=== PATIENT | male | born 1985 | race Caucasian/White ===

== ENCOUNTER 2020-11-04 09:25 | Outpatient (CLI) | payer BC, SELFPAY ==
--- NOTE | ~2020-11-04 | XR_ITS ---
EXAMINATION: XR chest 2V DATE: 11/04/2020 10:33 INDICATION: Nicotine dependence, shortness of breath TECHNIQUE: PA and lateral views of the chest are obtained. COMPARISON: None available FINDINGS: The lungs are free of acute opacities. There is mild scarring in the lung apices. There is no pleural effusion or pneumothorax. The cardiomediastinal silhouette is normal. The visualized bones and soft tissues are unremarkable. IMPRESSION: 1. No acute cardiopulmonary abnormality. Reviewed, dictated and finalized at location A. RSHED COORDINATOR
--- NOTE | ~2020-11-04 | XR_ITS ---
EXAMINATION: XR abdomen/kub 1V INDICATION: Abdominal pain TECHNIQUE: Supine view of the abdomen is obtained. COMPARISON: None FINDINGS: The bowel gas pattern is normal. No abnormal calcifications are identified. There are no di lated loops of bowel. There is heterotopic ossification projecting over the right femoral neck of unc lear origin. IMPRESSION: 1. No radiographic correlate for the patient's symptoms. 2. Heterotopic ossification projecting over the right femoral neck of unclear origin. Dedicated right hip radiographs are recommended. Reviewed, dictated and finalized at location A. L MANAGER IMPRESSION: 1. No radiographic correlate for the patient's symptoms. 2. Heterotopic ossification projecting over the right femoral neck of unclear o rigin. Dedicated right hip radiographs are recommended.
[2020-11-04 18:37] LABS: Basophils Percent Auto 0.5 % (0.2-1.2); Eosinophils Absolute Auto 0.2 K/mm3 (0-0.3); Eosinophils Percent Auto 3.9 % (0-4.4); Hematocrit 45.4 % (42.0-52.0); Hemoglobin 15.5 g/dL (14.0-18.0); Immature Granulocyte Absolute 0.01 K/mm3 (0.00-0.031); Immature Granulocyte Percent A 0.2 % (0-0.5); Lymphocytes Absolute Auto 2.33 K/mm3 (0.9-3.2); Lymphocytes Percent Auto 39.8 % (18.3-44.2); Mean Corpuscular HGB Conc 34.1 g/dl (32-36); Mean Corpuscular Hemoglobin 27.6 pg (26-34); Mean Corpuscular Volume 80.8 fl (80-100); Monocytes Absolute Auto 0.4 K/mm3 (0.1-0.6); Monocytes Percent Auto 7.2 % (2.6-8.5); Neutrophils Absolute Auto 2.8 K/mm3 (1.3-6.7); Neutrophils Percent Auto 48.4 % (45.5-73.1); Platelet Count Result 263 k/mm3 (150-375); Red Blood Count 5.62 M/mm3 (4.6-6.20); Red Cell Distribution Width 12.1 % (11.5-14.5); White Blood Count 5.9 K/mm3 (4.5-10.0)
[2020-11-04 18:52] LABS: Alanine Aminotransferase 86 U/L (4-50); Albumin Level 4.2 g/dL (3.5-5.1); Alkaline Phosphatase 92 U/L (38-126); Anion Gap 6 mmol/L (8-16); Aspartate Amino Transferase 45 U/L (17-59); Bilirubin,Total 0.9 mg/dL (0.2-1.3); Blood Urea Nitrogen 13 mg/dL (9-20); CRP < 0.5 mg/dL (<1.0); Carbon Dioxide 30 mmol/L (22-30); Chloride 104 mmol/L (98-107); Cholesterol 138 mg/dL (0-200); Estimated Glomerular Filt Rate > 60; Glucose 100 mg/dL (75-110); HDL Direct 52 mg/dL; Potassium 4.1 mmol/L (3.4-5.0); Sodium 140 mmol/L (137-145); Triglycerides 53 mg/dL (<150)
[2020-11-04 19:00] LABS: LDL Cholesterol Direct 69 mg/dL
[2020-11-04 19:06] LABS: Vitamin D 25 Hydroxy 26.3 ng/mL
[2020-11-04 19:19] LABS: Thyroid Stimulating Hormone < 0.015 uIU/mL (0.465-4.680)
[2020-11-04 19:57] LABS: Folic Acid > 20.0 ng/mL (2.76->20)
[2020-11-09 18:23] LABS: Testosterone Free 89.5 pg/mL (35.0-155.0); Testosterone Total 1053 ng/dL (250-1100)
== END 2020-11-04 09:26 | disposition home or self-care (01) ==
LOC: ANHBWCIMG 09:27
PROVIDERS: PCP Family Medicine; Visit Provider Family Medicine
DX: Z00.00 Encounter for general adult medical examination without abnormal findings (principal); R10.9 Unspecified abdominal pain; F17.200 Nicotine dependence, unspecified, uncomplicated; G89.29 Other chronic pain; M54.9 Dorsalgia, unspecified; Z13.9 Encounter for screening, unspecified; Z79.899 Other long term (current) drug therapy; Z82.62 Family history of osteoporosis; N99.89 Other postprocedural complications and disorders of genitourinary system; M89.9 Disorder of bone, unspecified
CPT/HCPCS: 36415; 71046; 74018; 80053; 80061; 82306; 82607; 82746; 84402; 84403; 84443; 85025; 86140

== ENCOUNTER 2020-11-14 10:36 | Outpatient (CLI) | payer BC, SELFPAY ==
--- NOTE | ~2020-11-14 | US_ITS ---
EXAMINATION: US thyroid DATE: 11/14/2020 11:26 INDICATION: Thyrotoxicosis. TECHNIQUE: Multiple ultrasound images of the thyroid were obtained. COMPARISON: None. FINDINGS: The right thyroid lobe measures 5.8 x 4.1 x 2.7 cm. The left thyroid lobe measures 5.8 x 3.3 x 3.2 c m. There are several bilateral solid or predominantly solid hypoechoic nodules with smooth margins a nd with multiple hyperechoic foci which could represent microcalcifications and a few larger coarse s hadowing calcifications (TI-RADS 5, highly suspicious , FNA if >=1.0 cm, annual followup is >0.5 cm). The largest is a 4.3 cm mass in the left thyroid lobe and the next largest a 3.6 cm mass in the righ t thyroid lobe. The smaller nodules include a couple 1-1.5 cm superior left thyroid and one at the in ferior right thyroid. IMPRESSION: 1. Multinodular goiter with multiple bilateral TI RADS 5 nodules. Would recommend ultrasound-guided b iopsy of the largest 4.3 cm left and 3.6 cm right thyroid nodules. Reviewed, dictated and finalized at location B. NITRATE PROCESSOR IMPRESSION: 1. Multinodular goiter with multiple bilateral TI RADS 5 nodules. Would recomme nd ultrasound-guided biopsy of the largest 4.3 cm left and 3.6 cm right thyroid nodules.
== END 2020-11-14 10:37 | disposition home or self-care (01) ==
PROVIDERS: PCP Family Medicine; Visit Provider Family Medicine
DX: E05.90 Thyrotoxicosis, unspecified without thyrotoxic crisis or storm (principal); E04.2 Nontoxic multinodular goiter
CPT/HCPCS: 76536

== ENCOUNTER 2020-11-28 08:33 | Outpatient (CLI) | payer BC, SELFPAY ==
--- NOTE | ~2020-11-28 | US_ITS ---
EXAMINATION: US FNA w image guidance, US FNA additional DATE: 11/28/2020 09:33 INDICATION: Multinodular goiter. TECHNIQUE: The procedure and its benefits and risks were discussed with the patient. Risks specifically discusse d included bleeding. The patient verbalized understanding of the risks and agreed to proceed. The nec k was prepped and draped in the usual sterile manner. 1% lidocaine was used for local anesthesia. F jarocho passes were made with a 25G needle into the lesion in left thyroid lobe under ultrasound guidance . Five passes were made with a 25G needle into the lesion in right thyroid lobe under ultrasound guidan ce. There were no immediate complications. FINDINGS: Grayscale ultrasound images demonstrate needles advanced into a 4.3 cm nodule in left thyroid lobe fo r biopsy. Grayscale ultrasound images demonstrate needles advanced into a 3.6 cm right thyroid nodule . IMPRESSION: 1. Ultrasound-guided fine needle aspiration of a 4.3 cm left thyroid nodule. 2. Ultrasound-guided fine-needle aspiration of a 3.6 cm right thyroid nodule. Reviewed, dictated and finalized at location A. IMPRESSION: 1. Ultrasound-guided fine needle aspiration of a 4.3 cm left thyroid nodule. 2. Ultrasound-guided fine-needle aspiration of a 3.6 cm right thyroid nodule.
== END 2020-11-28 08:34 | disposition home or self-care (01) ==
LOC: ANHIMG 08:36
PROVIDERS: PCP Family Medicine; Visit Provider Family Medicine
DX: E04.2 Nontoxic multinodular goiter (principal); E05.90 Thyrotoxicosis, unspecified without thyrotoxic crisis or storm
CPT/HCPCS: 10005; 10006; 88173; 88305

== ENCOUNTER 2020-12-29 08:40 | Outpatient (CLI) | payer BC, SELFPAY ==
[2020-12-29 20:09] LABS: Erythrocyte Sedimentation Rate 16 mm/hr (0-20)
[2020-12-29 20:45] LABS: Free T4 Free Thyroxine 2.41 ng/mL (0.78-2.19)
[2020-12-29 20:59] LABS: Thyroid Stimulating Hormone < 0.015 uIU/mL (0.465-4.680); Total Triiodothyronine (T3) 5.35 NG/ML (0.97-1.69)
[2021-01-02 06:14] LABS: Thyroid Peroxidase Antibodies <1 IU/mL (<9)
[2021-01-03 06:42] LABS: Thyrotropin Receptor Antibody <1.00 IU/L (<=2.00)
== END 2020-12-29 08:41 | disposition home or self-care (01) ==
PROVIDERS: PCP Family Medicine; Visit Provider Internal Medicine Endocrinology, Diabetes & Metabolism
DX: E04.2 Nontoxic multinodular goiter (principal); E05.90 Thyrotoxicosis, unspecified without thyrotoxic crisis or storm
CPT/HCPCS: 36415; 83519; 84439; 84443; 84480; 85652; 86376

== ENCOUNTER 2021-04-24 11:21 | Outpatient (CLI) | payer BC, SELFPAY ==
[2021-04-24 19:51] LABS: Free T4 Free Thyroxine 1.02 ng/mL (0.78-2.19)
[2021-04-24 20:05] LABS: Thyroid Stimulating Hormone < 0.015 uIU/mL (0.465-4.680)
== END 2021-04-24 11:22 | disposition home or self-care (01) ==
LOC: ANHBWCLAB 11:24
PROVIDERS: PCP Family Medicine; Visit Provider Internal Medicine Endocrinology, Diabetes & Metabolism
DX: E05.90 Thyrotoxicosis, unspecified without thyrotoxic crisis or storm (principal)
CPT/HCPCS: 36415; 84439; 84443

== ENCOUNTER 2021-07-06 11:11 | Outpatient (CLI) | payer BC, SELFPAY ==
[2021-07-06 22:07] LABS: Free T4 Free Thyroxine 0.67 ng/mL (0.78-2.19)
[2021-07-06 22:32] LABS: Total Triiodothyronine (T3) 1.52 NG/ML (0.97-1.69)
== END 2021-07-06 11:12 | disposition home or self-care (01) ==
LOC: ANHBWCLAB 11:13
PROVIDERS: PCP Family Medicine; Visit Provider Internal Medicine Endocrinology, Diabetes & Metabolism
DX: E05.90 Thyrotoxicosis, unspecified without thyrotoxic crisis or storm (principal)
CPT/HCPCS: 36415; 84439; 84443; 84480

== ENCOUNTER 2021-09-07 11:37 | Outpatient (CLI) | payer BC, SELFPAY ==
--- NOTE | ~2021-09-07 | XR_ITS ---
EXAMINATION: XR chest 2V 09/07/2021 11:46 INDICATION: Chest discomfort PROCEDURE: 2 view chest COMPARISON: 11/04/2020 FINDINGS: The lungs are clear. The cardiomediastinal silhouette is within normal limits. There are no pleural effusions. There is no pneumothorax suspected. IMPRESSION: 1: NO ACUTE CARDIOPULMONARY DISEASE. Reviewed, dictated and finalized at location A. OR PRODUCT DESIGNER
== END 2021-09-07 11:38 | disposition home or self-care (01) ==
LOC: ANHBWCIMG 11:40
PROVIDERS: PCP Family Medicine; Visit Provider Family Medicine
DX: E05.90 Thyrotoxicosis, unspecified without thyrotoxic crisis or storm (principal); E04.2 Nontoxic multinodular goiter; Z00.00 Encounter for general adult medical examination without abnormal findings
CPT/HCPCS: 71046

== ENCOUNTER 2021-11-06 08:34 | Outpatient (CLI) | payer BC, SELFPAY ==
[2021-11-06 20:06] LABS: Hematocrit 47.9 % (42.0-52.0); Hemoglobin 16.5 g/dL (14.0-18.0); Mean Corpuscular HGB Conc 34.4 g/dl (32-36); Mean Corpuscular Hemoglobin 30.7 pg (26-34); Mean Platelet Volume 10.2 fl (7.4-10.4); Platelet Count Result 272 k/mm3 (150-375); Red Blood Count 5.38 M/mm3 (4.6-6.20); Red Cell Distribution Width 12.5 % (11.5-14.5); White Blood Count 7.8 K/mm3 (4.5-10.0)
[2021-11-06 20:12] LABS: Alanine Aminotransferase 33 U/L (4-50); Alkaline Phosphatase 58 U/L (38-126); Anion Gap 8 mmol/L (8-16); Aspartate Amino Transferase 31 U/L (17-59); Blood Urea Nitrogen 12 mg/dL (9-20); Carbon Dioxide 29 mmol/L (22-30); Chloride 100 mmol/L (98-107); Estimated Glomerular Filt Rate > 60; Glucose 106 mg/dL (65-110); Potassium 4.4 mmol/L (3.4-5.0); Sodium 137 mmol/L (137-145)
[2021-11-06 20:28] LABS: Free T4 Free Thyroxine 0.75 ng/mL (0.78-2.19)
[2021-11-06 20:30] LABS: T4 Thyroxine 6.02 ug/dL (5.53-11.0)
[2021-11-06 20:44] LABS: Total Triiodothyronine (T3) 1.71 NG/ML (0.97-1.69)
[2021-11-08 05:07] LABS: Triiodothyronine T3 Free 2.7 pg/mL (2.3-4.2)
== END 2021-11-06 08:35 | disposition home or self-care (01) ==
PROVIDERS: PCP Family Medicine; Visit Provider Internal Medicine Endocrinology, Diabetes & Metabolism
DX: Z00.00 Encounter for general adult medical examination without abnormal findings (principal); E04.9 Nontoxic goiter, unspecified; E05.90 Thyrotoxicosis, unspecified without thyrotoxic crisis or storm; R25.2 Cramp and spasm
CPT/HCPCS: 36415; 80053; 82248; 84436; 84439; 84443; 84480; 84481; 85027

== ENCOUNTER 2021-12-04 08:37 | Outpatient (CLI) | payer BC, SELFPAY ==
[2021-12-04 19:13] LABS: Anion Gap 7 mmol/L (8-16); Blood Urea Nitrogen 16 mg/dL (9-20); Calcium 9.7 mg/dL (8.4-10.2); Carbon Dioxide 31 mmol/L (22-30); Chloride 100 mmol/L (98-107); Estimated Glomerular Filt Rate > 60; Glucose 100 mg/dL (65-110); Potassium 4.3 mmol/L (3.4-5.0); Sodium 138 mmol/L (137-145)
[2021-12-04 19:25] LABS: Free T4 Free Thyroxine 0.63 ng/mL (0.78-2.19); Vitamin D 25 Hydroxy 34.9 ng/mL
[2021-12-07 07:28] LABS: Triiodothyronine T3 Free 3.2 pg/mL (2.3-4.2)
== END 2021-12-04 08:38 | disposition home or self-care (01) ==
LOC: ANHBWCLAB 09:58
PROVIDERS: PCP Family Medicine; Visit Provider Internal Medicine Endocrinology, Diabetes & Metabolism
DX: E04.9 Nontoxic goiter, unspecified (principal); E89.3 Postprocedural hypopituitarism; R79.89 Other specified abnormal findings of blood chemistry
CPT/HCPCS: 36415; 80048; 82306; 84439; 84443; 84481

== ENCOUNTER 2022-05-07 08:36 | Outpatient (CLI) | payer BC, SELFPAY ==
[2022-05-07 20:27] LABS: Free T4 Free Thyroxine 0.83 ng/mL (0.78-2.19); Vitamin D 25 Hydroxy 30.8 ng/mL
== END 2022-05-07 08:37 | disposition home or self-care (01) ==
LOC: ANHBWCLAB 08:38
PROVIDERS: PCP Family Medicine; Visit Provider Internal Medicine Endocrinology, Diabetes & Metabolism
DX: R79.89 Other specified abnormal findings of blood chemistry (principal); E89.0 Postprocedural hypothyroidism
CPT/HCPCS: 36415; 82306; 84439; 84443

== ENCOUNTER 2023-05-16 10:09 | Outpatient (CLI) | payer BC, SELFPAY ==
[2023-05-16 19:56] LABS: Alanine Aminotransferase 43 U/L (6-50); Albumin Level 4.6 g/dL (3.5-5.1); Alkaline Phosphatase 38 U/L (38-126); Anion Gap 5 mmol/L (8-16); Aspartate Amino Transferase 76 U/L (17-59); Bilirubin,Total 0.8 mg/dL (0.2-1.3); Blood Urea Nitrogen 14 mg/dL (9-20); Carbon Dioxide 31 mmol/L (22-30); Chloride 101 mmol/L (98-107); Cholesterol 196 mg/dL (0-200); Estimated Glomerular Filt Rate > 60; Glucose 88 mg/dL (65-110); HDL Direct 61 mg/dL; Potassium 4.5 mmol/L (3.4-5.0); Sodium 137 mmol/L (137-145); Triglycerides 50 mg/dL (<150)
[2023-05-16 20:01] LABS: Hematocrit 45.5 % (42.0-52.0); Hemoglobin 15.1 g/dL (14.0-18.0); Mean Corpuscular HGB Conc 33.2 g/dl (32-36); Mean Corpuscular Volume 90.3 fl (80-100); Mean Platelet Volume 9.9 fl (7.4-10.4); Platelet Count Result 308 k/mm3 (150-375); Red Blood Count 5.04 M/mm3 (4.6-6.20); Red Cell Distribution Width 12.6 % (11.5-14.5); White Blood Count 6.8 K/mm3 (4.5-10.0)
[2023-05-16 20:06] LABS: LDL Cholesterol Direct 101 mg/dL
[2023-05-16 20:39] LABS: Vitamin D 25 Hydroxy 16.2 ng/mL
== END 2023-05-16 10:10 | disposition home or self-care (01) ==
LOC: ANHBWCLAB 10:11
PROVIDERS: PCP Nurse Practitioner Adult Health; Visit Provider Nurse Practitioner Adult Health
DX: Z13.9 Encounter for screening, unspecified (principal)
CPT/HCPCS: 36415; 80053; 80061; 82306; 84443; 85027

== ENCOUNTER 2024-06-05 08:50 | Outpatient (CLI) | payer OTHER, SELFPAY ==
--- NOTE | ~2024-06-05 | US_ITS ---
EXAMINATION: US_ABDRLQ_US DATE: 06/05/2024 09:07 INDICATION: Right lower quadrant abdominal pain. TECHNIQUE: Multiple grayscale and Doppler ultrasound images of the abdomen were obtained. COMPARISON: None FINDINGS: There is no abnormal mass or hernia in the right lower quadrant. The appendix is not identi fied. IMPRESSION: 1. No abnormality in the right lower quadrant. Appendix not identified. Reviewed, dictated and finalized at location A.
== END 2024-06-05 08:51 | disposition home or self-care (01) ==
LOC: GOSHIMG 08:52
PROVIDERS: PCP Nurse Practitioner Adult Health; Visit Provider Nurse Practitioner Adult Health
DX: R10.31 Right lower quadrant pain (principal)
CPT/HCPCS: 76705

== ENCOUNTER 2024-06-15 08:36 | Outpatient (CLI) | payer OTHER, SELFPAY ==
[2024-06-15 18:52] LABS: Hematocrit 49.9 % (42.0-52.0); Hemoglobin 16.2 g/dL (14.0-18.0); Mean Corpuscular HGB Conc 32.5 g/dl (32-36); Mean Corpuscular Hemoglobin 29.2 pg (26-34); Mean Corpuscular Volume 90.1 fl (80-100); Mean Platelet Volume 9.9 fl (7.4-10.4); Platelet Count Result 277 k/mm3 (150-375); Red Blood Count 5.54 M/mm3 (4.6-6.20); Red Cell Distribution Width 12.8 % (11.5-14.5); White Blood Count 6.4 K/mm3 (4.5-10.0)
[2024-06-15 19:02] LABS: Alanine Aminotransferase 60 U/L (6-50); Albumin Level 4.5 g/dL (3.5-5.1); Alkaline Phosphatase 38 U/L (38-126); Anion Gap 6 mmol/L (4-12); Aspartate Amino Transferase 70 U/L (17-59); Bilirubin,Total 0.5 mg/dL (0.2-1.3); Blood Urea Nitrogen 13 mg/dL (9-20); Calcium 9.2 mg/dL (8.4-10.2); Carbon Dioxide 31 mmol/L (22-30); Chloride 101 mmol/L (98-107); Cholesterol 187 mg/dL (0-200); Estimated Glomerular Filt Rate > 60; Glucose 107 mg/dL (65-110); HDL Direct 66 mg/dL; Potassium 4.7 mmol/L (3.4-5.0); Sodium 138 mmol/L (137-145); Triglycerides 60 mg/dL (<150)
[2024-06-15 19:15] LABS: LDL Cholesterol Direct 92 mg/dL
== END 2024-06-15 08:37 | disposition home or self-care (01) ==
LOC: ANHBWCLAB 08:37
PROVIDERS: PCP Nurse Practitioner Adult Health; Visit Provider Nurse Practitioner Adult Health
DX: Z13.9 Encounter for screening, unspecified (principal)
CPT/HCPCS: 36415; 80053; 80061; 84443; 85027

== ENCOUNTER 2024-07-30 08:44 | Outpatient (CLI) | payer OTHER, SELFPAY ==
[2024-07-30 21:23] LABS: Free T4 Free Thyroxine 0.55 ng/mL (0.78-2.19)
[2024-08-03 13:49] LABS: Thyroid Peroxidase Antibodies <1 IU/mL (<9)
== END 2024-07-30 08:45 | disposition home or self-care (01) ==
LOC: ANHBWCLAB 08:45
PROVIDERS: PCP Nurse Practitioner Adult Health; Visit Provider Nurse Practitioner Adult Health
DX: R79.89 Other specified abnormal findings of blood chemistry (principal)
CPT/HCPCS: 36415; 84439; 86376

== ENCOUNTER 2024-08-04 07:43 | Outpatient (CLI) | payer OTHER, SELFPAY ==
[2024-08-04 19:46] LABS: Add Urine Microscopic? NO; Appearance Urine Clear (Clear); Bilirubin Urine Negative (Negative); Blood Urine Negative (Negative); Color Urine Yellow (Yellow); Glucose Urine UA Negative (Negative); Ketones Urine Negative (Negative); Leukocyte Esterase Ur Negative LEU/UL (Negative); Nitrate Urine Negative (Negative); Protein Urine Negative (Negative); Specific Grav Ur 1.022 (1.001-1.035); Urobilinogen Urine 0.2 mg/dL (<2.0)
== END 2024-08-04 07:44 | disposition home or self-care (01) ==
PROVIDERS: PCP Nurse Practitioner Adult Health; Visit Provider Nurse Practitioner Adult Health
DX: R79.89 Other specified abnormal findings of blood chemistry (principal); R10.30 Lower abdominal pain, unspecified
CPT/HCPCS: 81003; 87086

== ENCOUNTER 2025-01-29 07:43 | Outpatient (CLI) | payer OTHER, SELFPAY ==
--- NOTE | ~2025-01-29 | US_ITS ---
EXAMINATION: US scrotum doppler DATE: 02/01/2025 08:21 INDICATION: Scrotal pain TECHNIQUE: Testicular sonogram utilizing grayscale and Doppler COMPARISON: None. FINDINGS: The right testis measures 3.8 x3.6 x 2.3 cm. The left testis measures 3.9 x 2.7 x 1.8 cm. Symmetric n ormal grayscale appearance to both testes with a few tiny echogenic foci in both testes consistent wi th minimal microlithiasis. There is normal vascular flow to both testes. The right epididymis is norm al with normal vascular flow. The left epididymis is normal with normal vascular flow. There is no hy drocele or right-sided varicocele. Mild left varicocele. IMPRESSION: 1. Left varicocele and minimal bilateral testicular microlithiasis. No acute intrascrotal abnormalit y. Reviewed, dictated and finalized at location A. IMPRESSION: 1. Left varicocele and minimal bilateral testicular microlithiasis. No acute i ntrascrotal abnormality.
--- NOTE | ~2025-01-29 | US_ITS ---
EXAMINATION: US soft tissue groin RT DATE: 02/01/2025 08:21 INDICATION: Lower abdominal pain TECHNIQUE: Multiple grayscale and Doppler ultrasound images of the region of concern at the right low er quadrant/groin were obtained. COMPARISON: None FINDINGS: There are a few normal-sized and appearing right inguinal lymph nodes with echogenic central fatty hi la. No other abnormal masses or fluid collections or evident inguinal hernia. IMPRESSION: 1. Normal study. Normal-sized right inguinal lymph nodes. Reviewed, dictated and finalized at location A.
== END 2025-01-29 07:52 | disposition home or self-care (01) ==
PROVIDERS: PCP Nurse Practitioner Adult Health; Visit Provider Nurse Practitioner Adult Health
DX: N50.82 Scrotal pain (principal); R10.31 Right lower quadrant pain; I86.1 Scrotal varices
CPT/HCPCS: 76870; 76882; 93976

== ENCOUNTER 2025-05-20 11:05 | Outpatient (CLI) | payer OTHER, SELFPAY ==
[2025-05-20 11:41] LABS: Hematocrit 44.1 % (42.0-52.0); Hemoglobin 15.1 g/dL (14.0-18.0); Immature Granulocyte Percent A 0.3 % (0-0.5); Lymphocytes Absolute Auto 2.23 K/mm3 (0.9-3.2); Mean Corpuscular HGB Conc 34.2 g/dl (32-36); Mean Corpuscular Hemoglobin 29.6 pg (26-34); Mean Corpuscular Volume 86.5 fl (80-100); Nucleated Red Blood Cells Absolute Auto 0.000 K/mm3 (0.0-0.012); Nucleated Red Blood Cells Perc 0.0 % (0.0-0.2); Platelet Count Result 261 k/mm3 (150-375); Red Blood Count 5.10 M/mm3 (4.6-6.20); White Blood Count 7.0 K/mm3 (4.5-10.0)
--- OUTSIDE RECORDS SUMMARY | 2025-05-20 11:48 | XMS_ITS | Clinical Summary ---
Author Organization [facility] Medical Office Building [address] Address [facility] [place] [address] Care Team Providers Care Bowling Floor Manager Name Role Phone Tavares Hinojosa DO Primary Care Provider [phone] Donna Sigala MD Unavailable [phone] Jackie Schmitt MD Unavailable [phone] Allergies Active Allergy Reactions Criticality Noted Date Comments Amoxicillin Rash Medium 06/15/2019 Cefaclor Rash Medium 06/15/2019 Methimazole Hives Medium 03/02/2021 Medications fish oil-dha-epa 1,200-144-216 mg capsule Take by mouth Active multivitamin tabletIndication s:Vitamin Deficiency Prevention Take 1 tablet by mouth Active Active Problems Problem Noted Date Diagnosed Date Hyperthyroidism 03/02/2021 Surgical History Surgery Date Site/Laterality Comments TONSILLECTOMY as a child Medical History Medical History Date Comments Thyroid disease Anxiety Depression Family History Medical History Relation Name Comments Cancer Maternal Grandfather Relation Name Status Comments Maternal Grandfather Social History Tobacco Use Types Packs/Day Years Used Date Smoking Tobacco: Every Day Cigarettes 0.5 13.7 Started: 2011 Smokeless Tobacco: Never Comments:pt stated he stoppe d for a while, then started back up recently smoking more than before AUDIT-C Answer Date Recorded Q1: How often do you have a drink containing alc ohol? 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 Gender Identity Not on file Sexual Orientation Not on file Obstetrics History Last Filed Vital Signs Vital Sign Reading Time Taken Comments Blood Pressure 99/56 03/02/2021 1:59 PM CDT Pulse 66 03/02/2021 1:59 PM CDT Temperature 36.5 C (97.7 F) 06/15/2019 3:45 AM CDT Respiratory Rate 18 06/15/2019 3:45 AM CDT Oxygen Saturation 100% 03/02/2021 1:59 PM CDT Inhaled Oxygen Concentration - - Weight 67.9 kg (149 lb 12.8 oz) 03/02/2021 1:59 PM CDT Height 185.4 cm (6' 1) 06/15/2019 3:45 AM CDT Body Mass Index 19.76 06/15/2019 3:45 AM CDT Plan of Treatment Not on file Insurance [employer] [place] [address] [place] [id number] [place] [employer]F PPO [place] Care Teams Bowling Floor Manager Relationship Specialty Start Date End Date Tavares Hinojosa DO PCP - General Family Medicine 03/02/21 Donna Sigala MD [address] [place] [address] Endocrinology Diabetes & Metabolism 03/02/21 Jackie Schmitt MD [address] [place], [place] [id number] Radiation Oncologist Radiation Oncology 03/02/21
== END 2025-05-20 11:06 | disposition home or self-care (01) ==
LOC: ANHSURGERY 11:07
PROVIDERS: PCP Nurse Practitioner Adult Health; Visit Provider Surgery
DX: K40.90 Unilateral inguinal hernia, without obstruction or gangrene, not specified as recurrent (principal)
CPT/HCPCS: 36415; 85025; 86850; 86900; 86901

== ENCOUNTER 2025-05-26 01:57 | Day surgery (SDC) | payer OTHER, SELFPAY ==
[2025-05-19 10:49] VITALS: BMI 24.0
--- NOTE | 2025-05-19 11:01 | PC.NURSE ---
Report to the Outpatient Waiting Room, entrance under the green pavilion located off [facility], at time _0600_ on date _23-11-1078_. Planned Procedure Time: _0730_.? Time changes happen often and if your time is changed the preop area will call you the afternoon before. - You and your visitor will be asked to self-screen and do not enter if you have any COVID symptoms. Please call surgeon if you need to reschedule. - A mask is optional within the hospital at this time. Patients may have clear liquids (water, carbonated beverages, clear teas, apple juice) until 3 hours prior to surgery with a maximum of 20 ounces. - No food from midnight until time of surgery and no smoking, or chewing tobacco (or any form of nicotine). No chewing gum, candy or mints. Take only the following medications with a SIP of water on the morning of surgery: __If resume Levothyroxine take it this morning.____ DO NOT STOP ANY OF YOUR OTHER PRESCRIPTION MEDICATIONS PRIOR TO SURGERY EXCEPT THE FOLLOWING Hold all vitamins and supplements for 3 days per anesthesiologist. Medications to discontinue per physician Date to take last ioby___20-31-0810___ Please no make-up, nail malian, hairspray, perfume, deodorant, or body powder the day of surgery.? No jewelry (including any body piercings) or valuables the day of surgery, leave them at home.? Please take a shower or bath the night before, or the morning of, surgery with an antibacterial soap.? Wear comfortable, loose fitting clothing.? - Jewelry must be removed prior to entering the operating room.? Rings and piercings that are not removed may be cut off. - The hospital will not accept responsibility for valuables.? - Please leave all valuables, including medications, at home the day of surgery. If you are going home after surgery, a licensed lokie driver must drive you home.? - NO public transportation without another adult if you receive anesthesia. - We recommend that an adult stay with you for 24 hours following discharge. - We also recommend that you do not drive, make important decision, drink alcoholic beverages, or take any drugs that were not prescribed by your health care provider for at least 24 hours after your discharge time. Follow any additional instructions given to you from your surgeon. Telephone instructions given to __Alex___and asked if any additional questions and then verbalized understanding. Patient advised to call surgeon office or pre surgery nurse liaison [phone] if any additional questions.
--- NOTE | 2025-05-25 08:38 | PM.SD2 ---
Same Day Admit/Disch: HPI History of Present Illness Chief complaint: Rt Ing Hernia Narrative: Felipe Salgado is a 39 year old male who noticed discomfort in his right groin last May. Initially thought discomfort was due to a muscle strain as it started soon after doing home improvement projects. Discomfort persisted, so he was evaluated by his PCP who ordered testing, but patient deferred scheduling immediately. He has since developed radiating pain into his scrotum and associated bulging in his right groin and scrotum. He did get right groin and scrotal ultrasounds done in January, which showed left varicocele and minimal bilateral testicular microlithiasis. No acute intrascrotal abnormality. Otherwise normal imaging. Symptoms are most prominent at the end of his day, especially when he's been more active. Discomfort improves and bulging reduces with rest. He does report increased urinary frequency, but no change in bowel habits, nausea, vomiting, or abdominal distension. [facility] Past Medical History Medical History Multiple thyroid nodules Vocal cord nodules Depression Allergies Anxiety Surgical History Surgical History H/O vasectomy Family History Family History Other Anxiety Asthma Cerebrovascular accident Depression Heart disease Thyroid disease Social History Social History Years smoked: 5 Smoking status: Former smoker Tobacco type: cigarettes Smoking end date: 02/15/22 Alcohol intake: current Drinks per week: 14 Substance use: never Substance use type: marijuana Other substance usage details: On rare occasions. Do You Feel Safe in your Home?: Yes Lack of Transportation: No Lack of Food: Never True Current Housing: I Have Housing Concerned About Future Housing: No Difficulty Paying Gas/Electric Bills: No Difficulty Paying for Meds: No Currently Unemployed: No Education: Master's Degree or Higher Difficulty w/ Childcare or Family Care: No Living arrangements: with family Occupation/Education: occupation Spiritual care concerns: No Same Day Admit/Disch: Med Pre-admit Medications Home Medications ?Medication ?Instructions ?Recorded ?Confirmed ?Type levothyroxine 25 mcg tablet See Rx Instructions .Route 10/29/24 05/26/25 Rx .COMPLEX #90 tabs multivitamin (Daily Multi-Vitamin 1 tablet PO DAILY 05/19/25 05/26/25 History tablet) omega 3-vfg-kbd-fish oil 1,200 mg 1 cap PO DAILY 05/19/25 05/26/25 History (144 mg-216 mg) capsule (Fish Oil) ketorolac 10 mg tablet 10 mg PO Q6H 4 days #16 tabs 05/26/25 Rx oxycodone-acetaminophen 5 mg-325 0.5 - 1 tablet PO Q4H PRN pain #10 05/26/25 Rx mg tablet (Percocet) tabs Review of Systems Review of Systems All systems reviewed & are unremarkable except as noted in HPI and below (HPI) Exam Const: General: comfortable, no acute distress, alert and awake HENMT: Head: normocephalic and atraumatic Mouth: Yes Normal oral and palatal mucosa present Eyes: Conjunctivae: conjunctivae normal Pupils: Equal, round and reactive pupils present EOM: EOMs intact bilaterally Neck: Neck: normal visual inspection, no lymphadenopathy and nontender Resp: Effort & Inspection: normal respiratory effort Auscultation: clear to auscultation bilaterally Cardio: Rate: regular rate Rhythm: regular rhythm Heart sounds: no gallops, no murmurs and no rubs GI: Inspection: non-distended GI Palp: Yes Soft to palpation, No Tenderness to palpation present (GI), No Hepatomegaly present and No Splenomegaly present : Male General Exam: Yes hernia ( right inguinal hernia that extends down to the scrotum) Penis: Yes normal penis Scrotum: scrotum normal Testes: Testes normal Skin: Lesions: no lesions Rashes: no rashes Neuro: General: no focal motor deficits and CN's II-XI intact bilaterally Cranial nerves: Yes Equal, round and reactive pupils present, Yes Bilaterally intact EOM present, Yes facial symmetry and Yes Midline tongue present Speech: normal speech Motor exam (neuro): 5/5 motor strength present throughout and Motor abnormalities not present Extrem: General: no clubbing, cyanosis or edema and edema Psych: Affect: normal affect Thought process: Normal thought process present Insight: Good insight present (Psych) DS: Summary Time Spent with Patient Time attestation: Total time spent providing and/or coordinating discharge services: DS: Admitting Diagnosis Discharge Date 05/26/2025 Admitting Diagnosis right inguinal hernia - reducible but symptomatic - after discussion, plan to proceed with robotic laparoscopic right inguinal hernia repair with mesh. Procedure, risks, benefits have been discussed. Use of mesh, length of surgery, length of recovery and time off work have been discussed. All questions were answered, he understands and wishes to go ahead. hypothyroidism--on supplement DS: Discharge Diagnosis Discharge Diagnosis (1) Inguinal hernia of right side without obstruction or gangrene: Code(s): K40.90 - Unilateral inguinal hernia, without obstruction or gangrene, not specified as recurrent Status: Chronic Assessment and Plan: Robotic laparoscopic repair with 3DMax mesh performed 05/26/[address] Ribeiro as an outpatient Discharge Plan Discharge Patient Disposition: Home Discharge Instructions: 1. May shower the day after surgery over incisions. 2. Call office for: -Wound increasingly painful or bleeding -Vomiting -Fever of greater than 101 degrees 3. Wear scrotal support at all times except when showering or sleeping for 1 week 4. If no bowel movement for three days, take 1 oz. (30 ml) Milk of Magnesia, if no results, take Fleets enema. 5. No heavy lifting > 15-20 pounds for 2 weeks. 6. No driving for 3 days or while taking narcotic pain medications. 7. Up walking 10-30 minutes three times per day. 8. Resume previous home medications. 9. Follow-up 10-14 days in office for wound check or as previously scheduled. 10. Oral pain medications prescription to be sent home with patient. 11. NUTRITION: Start out by drinking fluids and increase your diet as tolerated. If you experience nausea, try dry toast, crackers, and 7-UP. If nausea or vomiting persists, contact your surgeon?s office. Patient Language: Divehi Stand Alone Forms: General Discharge Instructions Follow-up/Referrals: Wale Ribeiro MD [Physician, General Surgery] - 2 Weeks Discharge Medications: New ketorolac 10 mg tablet 10 mg PO Q6H 4 Days Qty: 16 0RF oxycodone-acetaminophen [Percocet] 5-325 mg tablet 0.5 - 1 tablet PO Q4H PRN (Reason: pain) Qty: 10 0RF Continued multivitamin [Daily Multi-Vitamin] Tablet 1 tablet PO DAILY omega 1-xtu-kpi-fish oil [Fish Oil] 1,200 (144-216) mg capsule 1 cap PO DAILY levothyroxine 25 mcg tablet See Rx Instructions .ROUTE .COMPLEX Qty: 90 0RF Dose Instruction: TAKE 1 TABLET BY MOUTH DAILY Patient Comments: currently not taking because 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 Rx Instructions: TAKE 1 TABLET BY MOUTH DAILY
[2025-05-26] VITALS (9 sets, daily range): BP systolic 110–130; BP diastolic 63–87; PULSE 56–81; RESP 14–20; TEMP 36.4–36.9; O2SAT 95–100; BMI 24.7
[2025-05-26] MEDS: LACTATED RINGERS 1,000 ML 30 ML IV CONT ×2 (06:45→09:45)
--- NOTE | 2025-05-26 06:48 | WPDANESEPPF ---
Anes - Initial Pre Proc Eval Procedure: Operation Date: 05/26/25 07:30 Proposed Procedures p Robotic Repair Right Inguinal Hernia with Mesh - Wale Ribeiro MD Date/Time: 05/26/25 06:48 Surgeon: Wale Ribeiro MD Pre Op Diagnosis: Rt Ing Hernia Patient Data Age: 39 Gender: M Height: 1.87 m Weight: 84 kg Allergies Allergy/AdvReac Type Severity Reaction Status Date / Time cefaclor (From Ceclor) Allergy Hives Verified 05/26/25 06:47 methimazole Allergy Hives Verified 05/26/25 06:47 Home Medications ?Medication ?Instructions ?Recorded ?Confirmed ?Type levothyroxine 25 mcg tablet See Rx Instructions .Route 10/29/24 05/26/25 Rx .COMPLEX #90 tabs multivitamin (Daily Multi-Vitamin 1 tablet PO DAILY 05/19/25 05/26/25 History tablet) omega 4-euz-fij-fish oil 1,200 mg 1 cap PO DAILY 05/19/25 05/26/25 History (144 mg-216 mg) capsule (Fish Oil) Patient hx anesthesia problems: none Family hx anesthesia problems: none Results Review: All pre-operative results and documents have been reviewed as part of the pre-operative evaluation. [facility] Past Medical History Medical History Multiple thyroid nodules Vocal cord nodules Depression Allergies Anxiety Surgical History Surgical History H/O vasectomy Family History Family History Other Anxiety Asthma Cerebrovascular accident Depression Heart disease Thyroid disease Social History Social History Years smoked: 5 Smoking status: Former smoker Tobacco type: cigarettes Smoking end date: 02/15/22 Alcohol intake: current Drinks per week: 14 Substance use: never Substance use type: marijuana Other substance usage details: On rare occasions. Do You Feel Safe in your Home?: Yes Lack of Transportation: No Lack of Food: Never True Current Housing: I Have Housing Concerned About Future Housing: No Difficulty Paying Gas/Electric Bills: No Difficulty Paying for Meds: No Currently Unemployed: No Education: Master's Degree or Higher Difficulty w/ Childcare or Family Care: No Living arrangements: with family Occupation/Education: occupation Spiritual care concerns: No Anes - Eval Final PreProcedure Day of Procedure 05/26/25 06:48 Patient weight: overweight Heart: regular rate and rhythm Lungs: clear to auscultation Airway: Mallampati scale class II Neurological: alert and oriented Last oral intake: >/= 8 hours ASA classification: II Emergent: no Anesthetic plan: proceed Anesthesia type and monitoring: general ETT and standard monitoring Results Review: All pre-operative results and documents have been reviewed as part of the pre-operative evaluation. Informed Consent: The patient's anesthetic plan and its attendant risks and benefits were discussed with the patient/family/POA. Questions were solicited and answers provided to the satisfaction of the patient/family/POA.
[2025-05-26] MEDS: KETOROLAC 15 MG/ML VIAL (*BKC) IV PUSH (06:56)
[2025-05-26] MEDS: ACETAMINOPHEN 500 MG TABLET 1000 MG PO (06:56)
--- NOTE | 2025-05-26 07:00 | WPDHPUPDATE1 ---
History and Physical Update Update Date/Time: 05/26/25 07:00 History and Physical has been reviewed, including an updated exam of the patient. There are NO changes in the patient's condition. Risks, benefits, and alternatives have been discussed and questions answered. Patient agrees to proceed with procedure.
[2025-05-26] MEDS: ceFAZolin 2 GM in SODIUM CHLORIDE 0.9% IV 50 ML 100 ML IVPB (07:23)
[2025-05-26] MEDS: BUPIVACAINE/EPINEPHRINE 0.5% 50 ML VIAL 30 ML INFILTRATE (08:38)
--- NOTE | 2025-05-26 09:36 | W.PM.PROC2 ---
Procedure Note - Detailed Date of Procedure 05/26/25 Pre-op Diagnosis Rt Ing Hernia Post-op Diagnosis Same Procedure Performed Robotic laparoscopic repair right inguinal hernia with mesh Surgeon Wale Ribeiro MD Mammography Tech Marjorie Casiano [employer] Anesthesia General and Local Indications Patient has had a bulge with some discomfort in the right groin. Exam in the office showed a right inguinal hernia that extended down to the upper scrotum. He is taken to surgery now for repair. Findings Patient had a large indirect right inguinal hernia but also a smaller direct right inguinal hernia. Description of Procedure Patient was taken to surgery and induced into general anesthesia. The abdomen is prepped and draped. Trocars were placed in the usual fashion starting with then applied Medical optical trocar and then converting to 3 8 mm robotic trocars under direct visualization. Patient was placed in steep Trendelenburg. The robotic arm for brought into the field. They were docked and positioned appropriately. The surgeon went to the robotic console. An anterior peritoneal flap was started laterally and proceeded medially to the median umbilical ligament. This flap was dissected broadly. The medial aspect was dissected to Angel's ligament and the pubis was exposed as well. Laterally it was dissected well posterior. In the center, was the large indirect hernia. Traction on the peritoneum was carried out and dissection, including transsection, of the transversalis sling was carried out. We placed traction on the hernia sac anteriorly and to the patient's left. We carefully searched for and protected the vas deferens and spermatic cord structures. The hernia sac was quite large. Bleeding was fortunately minimal. Visualization was good. Eventually we were able to see the into the sac and then carefully dissected away from the spermatic cord structures. There was a large lipoma associated with the hernia sac as well. This was likewise reduced. We then continued our dissection to ensure that the hernia sac and peritoneal reflection were at least fiber 6 cm posterior to the lower edge of the internal ring. I then positioned an extra-large, 17 x 12 cm, mid 3DMax right-sided mesh over the inguinal canal structures and hernias. Once positioned appropriately, I secured it to Angel's ligament with a 3-0 Vicryl suture. To anterior 3-0 Vicryl sutures were then used, 1 medial and 1 lateral. The mesh did extend across the pubis about a cm and lay nicely again on the anterior abdominal wall. All looked good. I then closed the peritoneal incision with running 3 0 V lock suture. We then removed the instruments and undocked the robot. CO2 was evacuated. Trocars were removed. Skin wounds were closed with subcuticular 4-0 Monocryl skin suture. The wounds were dressed with Exofin surgical adhesive. A scrotal support was placed. Patient was awakened and taken to recovery in good condition. Sponge needle counts were correct x2. Implants Extra-large mid, 17 x 12 cm, right 3DMax mesh Estimated Blood Loss -5 Drains No Packing No Pathology None sent Complications None Condition Stable Disposition PACU [facility] Billing Surgery - Charge Forward: Surgery Billing (Robotic laparoscopic repair right inguinal hernia with mesh)
[2025-05-26] MEDS: oxyCODONE HCL (*CRX) 5 MG TAB IR PO (10:45)
== END 2025-05-26 11:52 | disposition home or self-care (01) ==
PROVIDERS: PCP Nurse Practitioner Adult Health; Visit Provider Surgery
PROC: 8E0Y4CZ Robotic Assisted Procedure of Lower Extremity, Percutaneous Endoscopic Approach (ICD-10-PCS; CPT 49650; principal; 2025-05-26 07:30)
DX: K40.90 Unilateral inguinal hernia, without obstruction or gangrene, not specified as recurrent (principal); G89.18 Other acute postprocedural pain; F32.A Depression, unspecified; F41.9 Anxiety disorder, unspecified; F12.90 Cannabis use, unspecified, uncomplicated; Z79.891 Long term (current) use of opiate analgesic; Z98.890 Other specified postprocedural states; Z87.891 Personal history of nicotine dependence; Z82.49 Family history of ischemic heart disease and other diseases of the circulatory system
CPT/HCPCS: 49650; S2900; J0690; A9270; C1781; J1885; J2003; J2250; J2405; J2704; J3010; J7030; J7120